=== PATIENT | female | born 1975 | race Caucasian/White ===

== ENCOUNTER 2017-10-03 14:41 | Emergency (ER) | payer BC ==
--- NOTE | 2017-10-03 15:21 | ERPHSYRPT ---
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 reports moderate pain. reports pain increased with movement of the pinky finger. Triage Nursing Assessment: pt is aox3, pupils perrl, resps easy and non labored , radial pulses are strong and equal. sensation is intact to bilat upper extremities. skin is pink warm and dry. pain reported to the left 5th finger that is increased with movement. pain also reported to the left wrist and forearm. cap refill <3 seconds. 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 reports moderate pain. reports pain increased with movement of the pinky finger. Occurred: just prior to arrival Method of Injury: sports injury Quality: constant Severity of Pain-Max: mild Severity of Pain-Current: mild Extremities Pain Location: forearm: left, wrist: left, hand: left Allergies/Adverse Reactions: No Known Drug Allergies Allergy (Unverified 10/03/17 14:56) Hx Tetanus, Diphtheria Vaccination/Date Given: Yes Hx Influenza Vaccination/Date Given: No Hx Pneumococcal Vaccination/Date Given: No Immunizations Up to Date: Yes - Review of Systems Constitutional: No Symptoms Ears, Nose, & Throat: No Symptoms Respiratory: No Symptoms Abdominal/Gastrointestinal: No Symptoms Genitourinary Symptoms: No Symptoms Musculoskeletal: Joint Pain, No Deformity Skin: No Symptoms Neurological: No Symptoms - Past Medical History Pertinent Past Medical History: No - Past Surgical History Past Surgical History: Yes Gastrointestinal: Appendectomy Genitourinary: Other Musculoskeletal: Orthopedic Surgery Female Surgical History: Hysterectomy Other Surgical History: kidney stone removal. tubal reversal - Social History Smoking Status: Never smoker Drug Use: none Patient Lives Alone: No - Female History Hx Last Menstrual Period: hyst Hx Now: No - Nursing Vital Signs Nursing Vital Signs: Initial Vital Signs Temperature 97.8 F 10/03/17 14:47 Pulse Rate 72 10/03/17 14:47 Respiratory Rate 18 10/03/17 14:47 Blood Pressure 125/75 10/03/17 14:47 O2 Sat by Pulse Oximetry 100 10/03/17 14:47 Pain Scale Pain Intensity 6 - Physical Exam General Appearance: no apparent distress Eyes, Ears, Nose, Throat Exam: normal ENT inspection Wrist Exam: pain, soft tissue tenderness, No deformity Hand Exam: soft tissue tenderness, No limited ROM Neuro/Tendon Exam: normal sensation, normal motor functions, normal tendon functions SpO2: 100 Oxygen Delivery: Room Air - Course Nursing assessment & vital signs reviewed: Yes - Radiology Exams Forearm X-ray Interpretation: Reviewed by me, Negative, No Fracture Wrist X-ray Interpretation: Reviewed by me, Negative, No Fracture Hand X-ray Interpretation: Reviewed by me, Negative, No Fracture Ordered Tests: Active Orders 24 hr Category Date Time Status Cold Application STAT Care 10/03/17 15:06 Active FOREARM Stat Exams 10/03/17 15:19 Taken HAND (MINIMUM 3 VIEWS) Stat Exams 10/03/17 15:19 Taken WRIST (MIN 3 VIEWS) Stat Exams 10/03/17 15:19 Taken - Progress Progress: unchanged, pain not gone completely Counseled pt/family regarding: diagnosis, need for follow-up, rad results - Departure Time of Disposition: 15:30 Departure Disposition: Home Clinical Impression: Sprain of wrist, left Qualifiers: Encounter type: initial encounter Qualified Code(s): S63.502A - Unspecified sprain of left wrist, initial encounter Condition: Stable Critical Care Time: No Referrals: BETTYE OLIVAS [Primary Care Provider] - Instructions: Hand Pain (DC), Wrist Sprain (DC) Additional Instructions: SPRAINS/STRAINS/CONTUSIONS 1. Rest the affected area as much as possible for the next few days. 2. Apply ice to the affected area for 20-30 minutes at a time, several times a day. 3. If you receive an elastic wrap, wear it only while awake for comfort and support. Re-wrap the elastic wrap if it feels too tight or too loose. 4. If swelling is present, elevate the affected part above the level of the heart for at least 2 to 3 days. 5. Use splints, slings, or crutches as instructed. 6. Watch for severe swelling, coldness, numbness, and discoloration of the fingers and toes. See your family physician or return to the emergency department if any of these are noted. LUIS F FLYNN was seen on 10/03/17 n the Emergency Room. At that time you were treated for an emergent condition, during your visit Laboratory, Radiology and/ or other procedures may have been ordered. It is very important that you follow- up with your Primary Care Physician BETTYE OLIVAS within the next 24-48 hours to review your Emergency Room visit and the final results of testing that was ordered. Some test results such as Urine Cultures, Blood Cultures, and other cultures if ordered will not be finalized for 24-48 hours. If you do not have a Primary Care Provider please call the medical records department at [phone] to obtain a copy of your results or you may sign into our patient portal to obtain these results by visiting us @ [email or web address] and completing the following steps: 1. Click on the Patient Portal link 2. Click the Patient Self Enrollment Link to complete the enrollment form and entering your 3. Once the enrollment form is completed you will receive an email with a temporary ID and password at the email address you provided. 4. Next choose a user name and password. Your user name must be at least 4 characters long and your password must be at least 4 characters long. 5. Choose a security question from the list and provide your answer to the question. If you already have signed into the Health Portal you may access your Health Care Information 25/01 by the following steps: 1. Login to our website @ [email or web address] 2. Enter your original user name and password. FAQS The [facility] Health Portal is an online tool that contains your Lab Results, Radiology Reports, Visit History, Discharge Instructions and Health Summary Lab and Radiology Results will not be available for 72 hours on the portal. The Portal is a secure site, passwords are encryted and URLs are re-written so they cannot be copied and pasted. You and authorized family members are the only ones who can access your Portal. Also there is a timeout feature that protects your information if you leave the Portal page open. If you have technical difficulty please use the Contact Us link on the page this will allow you to submit any questions you have regarding the Portal or you may contact the Medical Record Department at [phone]. Prescriptions: Naproxen 375 mg [Naprosyn 375 mg] 375 mg PO Q8H #30 tablet
[2017-10-03] MEDS ORDERED: TORAdol 30 mg Injection IM ONE (15:32)
[2017-10-03] MEDS ORDERED: TORAdol 30 mg Injection ONE (15:44)
[2017-10-03 15:58] VITALS: BP 141/76; PULSE 56; O2SAT 99
--- NOTE | 2017-10-03 20:45 | XRAY ---
Indication: Pain following basketball injury. Comparison: None 3 views of the left wrist obtained. No bony, articular, or soft tissue abnormalities.
--- NOTE | 2017-10-03 20:45 | XRAY ---
Indication: Pain following basketball injury. Comparison: None 3 views of the left hand obtained. No bony, articular, or soft tissue abnormalities.
--- NOTE | 2017-10-03 20:45 | XRAY ---
Indication: Pain following basketball injury. Comparison: None 2 views of the left forearm obtained. No bony, articular, or soft tissue abnormalities.
== END 2017-10-03 15:58 | disposition home or self-care (01) ==
LOC: ED 14:41
DX: S63.502A Unspecified sprain of left wrist, initial encounter (principal); M79.645 Pain in left finger(s); Y93.67 Activity, basketball
CPT/HCPCS: 73090; 73110; 73130; 96372; 99283; 99284; J1885; L3908